=== PATIENT | female | born 1985 | race Two or more races ===

== ENCOUNTER 2016-11-11 10:02 | Emergency (ER) | payer MEDICAID, OTHER ==
[~2016-11-11] VITALS: Ht 157.5 cm; Wt 52.2 kg
[2016-11-11 11:07] LABS: KETONES,URINE Negative (NEGATIVE); LEUKOCYTE ESTERASE ,URINE Negative (NEGATIVE)
[2016-11-11 11:10] LABS: ADD UA MICROSCOPIC YES
[2016-11-11 11:23] LABS: ADD URINE CULTURE NO; WBC,URINE 0-2 /HPF (0-3)
[2016-11-11 11:27] VITALS: BP 132/65
== END 2016-11-11 11:30 | disposition home or self-care (01) ==
LOC: ER 10:03
DX: M54.5 Low back pain (principal)
CPT/HCPCS: 81001; 99283; A4606; Z7610; 81000-TC

== ENCOUNTER 2017-08-12 01:04 | Emergency (ER) | payer MEDICAID ==
--- NOTE | 2017-08-12 01:18 | NUR ---
during triage assessment, patient states that she has had a rash for 8 months, and tonight its became itchy and wants a cream for it, and doesnt want to see a doctor. i advised her to get hydrocortisone cream over the counter, and to follow up with her primary doctor. she then did not want to continue the triage assessment and left [facility] ED.
== END 2017-08-12 01:24 | disposition left against medical advice (07) ==
LOC: ER 01:06
DX: Z53.21 Procedure and treatment not carried out due to patient leaving prior to being seen by health care provider (principal)

== ENCOUNTER 2018-04-21 23:49 | Emergency (ER) | payer MEDICAID ==
[~2018-04-21] VITALS: Ht 154.9 cm; Wt 53.5 kg
--- NOTE | 2018-04-21 23:49 | NUR ---
PT C/O MID EPIGASTIC PAIN X 2 DAYS WORSE NOW, - NVD. HX GASTRITIS. VSS NAD A/OX4 ROMANSH SPEAKING. WILL CONTINUE TO MONITOR FOR ANY CHANGES DURING THE SHIFT.
--- NOTE | 2018-04-21 23:50 | NUR ---
ER MD ALFRED AT BEDSIDE
[2018-04-22 00:46] LABS: BASOPHILS % (AUTO) 0.7 % (0.0-2.0); EOSINOPHILS % (AUTO) 3.2 % (0.0-6.0); HEMATOCRIT 41 % (33-45); HEMOGLOBIN 14.1 g/dL (11.5-14.8); LYMPHOCYTES # (AUTO) 2.2 /CMM (0.8-4.8); LYMPHOCYTES % (AUTO) 34.4 % (20.0-44.0); MEAN CORPUSCULAR HEMOGLOBIN 29 PG (26.0-33.0); MEAN CORPUSCULAR HGB CONC 34 g/dl (31.0-36.0); MEAN CORPUSCULAR VOLUME 85 fL (82-100); MONOCYTES # (AUTO) 0.5 /CMM (0.1-1.30); MONOCYTES % (AUTO) 8.3 % (2.0-12.0); NEUTROPHILS # (AUTO) 3.6 /CMM (1.8-8.9); NEUTROPHILS % (AUTO) 53.4 % (43.0-81.0); PLATELET COUNT (AUTO) 257 /CMM (150-450); RDW COEFFICIENT OF VARIATION 11.9 (11.5-15.0); RED BLOOD CELL COUNT(AUTO) 4.82 MIL/uL (4.0-5.2); WHITE BLOOD COUNT (AUTO) 6.5 K/uL (4.3-11.0)
[2018-04-22 00:51] LABS: APPEARANCE,URINE CLEAR (CLEAR); BILIRUBIN,URINE NEGATIVE (NEGATIVE); BLOOD, URINE 2+ Ery/uL (NEGATIVE); KETONES,URINE NEGATIVE (NEGATIVE); LEUKOCYTE ESTERASE ,URINE NEGATIVE (NEGATIVE); NITRITE, URINE NEGATIVE (NEGATIVE); PROTEIN,URINE NEGATIVE (NEGATIVE); UGLUCOSE NEGATIVE (NEGATIVE); UROBILINOGEN,URINE 0.2 EU/dL (0.2)
[2018-04-22 00:52] LABS: COLOR,URINE DARK YELLOW (YELLOW)
[2018-04-22] MEDS ORDERED: IV NS 0.9% 1,000 ML BAG IV ONE (01:00)
[2018-04-22] MEDS ORDERED: PANTOPRAZOLE 40 MG TABLET.DR PO ONE ×2 (01:00→01:04)
[2018-04-22] MEDS ORDERED: MAG HYDROX/AL HYDROX/SIMETH 30 ML UDC PO ONE (01:00)
[2018-04-22] MEDS ORDERED: MAG HYDROX/AL HYDROX/SIMETH 30 ML UDC ONE (01:03)
[2018-04-22 01:06] LABS: ALBUMIN 3.8 g/dL (3.4-5.0); BILIRUBIN,DIRECT 0.2 mg/dL (0.0-0.2); CALCIUM, SERUM 8.5 mg/dL (8.5-10.1); CREATININE 0.8 mg/dL (0.6-1.3); POTASSIUM 3.5 mmol/L (3.5-5.1); TOTAL PROTEIN, SERUM 7.7 g/dL (6.4-8.2)
[2018-04-22 01:10] LABS: BACTERIA,URINE None seen /HPF (None Seen); SQUAMOUS EPITHELIAL CELL,UR Few /HPF (None Seen); WBC,URINE 0-2 /HPF (0-3)
[2018-04-22 01:43] VITALS: BP 126/85
== END 2018-04-22 01:43 | disposition home or self-care (01) ==
LOC: ER 23:49
DX: K21.9 Gastro-esophageal reflux disease without esophagitis (principal); Z60.2 Problems related to living alone
CPT/HCPCS: 36415; 80048; 80076; 81001; 83690; 85025; 87086; 99284; A4606; Z7610; 81000-TC

== ENCOUNTER 2018-11-10 23:32 | Emergency (ER) | payer MEDICAID ==
[~2018-11-10] VITALS: Ht 154.9 cm; Wt 54.4 kg
--- NOTE | 2018-11-10 23:40 | NUR ---
[facility] C/O ABD PAIN W/ N/V X 1 DAY. PT AMBULATED TO BED WITH A STEADY GAIT. PT LYING IN BED IN COMFORTABLE POSITION. PT PLACED ON MONITOR WITH VS WNL. AWAITING MD DILLARD.
[2018-11-11 00:15] LABS: APPEARANCE,URINE CLEAR (CLEAR); BILIRUBIN,URINE 1+ (NEGATIVE); BLOOD, URINE 2+ Ery/uL (NEGATIVE); COLOR,URINE YELLOW (YELLOW); KETONES,URINE NEGATIVE (NEGATIVE); LEUKOCYTE ESTERASE ,URINE NEGATIVE (NEGATIVE); NITRITE, URINE NEGATIVE (NEGATIVE); PH,URINE 8.5 (5.0-8.0); PROTEIN,URINE 1+ mg/dl (NEGATIVE); UGLUCOSE NEGATIVE (NEGATIVE)
[2018-11-11 00:22] LABS: BASOPHILS % (AUTO) 0.5 % (0.0-2.0); EOSINOPHILS % (AUTO) 0.2 % (0.0-6.0); HEMATOCRIT 40 % (33-45); HEMOGLOBIN 13.7 g/dL (11.5-14.8); LYMPHOCYTES # (AUTO) 0.8 /CMM (0.8-4.8); LYMPHOCYTES % (AUTO) 12.1 % (20.0-44.0); MEAN CORPUSCULAR HGB CONC 34 g/dl (31.0-36.0); MEAN CORPUSCULAR VOLUME 86 fL (82-100); MONOCYTES # (AUTO) 0.7 /CMM (0.1-1.30); MONOCYTES % (AUTO) 10.6 % (2.0-12.0); NEUTROPHILS # (AUTO) 5.4 /CMM (1.8-8.9); NEUTROPHILS % (AUTO) 76.6 % (43.0-81.0); PLATELET COUNT (AUTO) 254 /CMM (150-450)
[2018-11-11] MEDS ORDERED: KETOROLAC TROMETHAMINE INJ 30 MG/ML VIAL ONE (00:29)
[2018-11-11] MEDS ORDERED: KETOROLAC TROMETHAMINE INJ 30 MG/ML VIAL IM ONE (00:30)
[2018-11-11 00:39] LABS: CALCIUM, SERUM 8.8 mg/dL (8.5-10.1); CREATININE 0.6 mg/dL (0.6-1.3); POTASSIUM 3.6 mmol/L (3.5-5.1)
[2018-11-11 00:45] LABS: ALBUMIN 4.2 g/dL (3.4-5.0); BILIRUBIN,DIRECT 1.1 mg/dL (0.0-0.2); BILIRUBIN,TOTAL 2.1 mg/dL (0.2-1.0); TOTAL PROTEIN, SERUM 7.9 g/dL (6.4-8.2)
[2018-11-11 00:46] LABS: BACTERIA,URINE Few /HPF (None Seen); RBC,URINE 51-80 /HPF (0-2); SQUAMOUS EPITHELIAL CELL,UR Few /HPF (None Seen); WBC,URINE 0-2 /HPF (0-3)
--- NOTE | 2018-11-11 01:02 | NUR ---
US TECH AT BEDSIDE
[2018-11-11] MEDS ORDERED: ONDANSETRON 4 MG TAB.RAPDIS SL ONE (03:00)
[2018-11-11] MEDS ORDERED: HYDROCODONE/APAP 5/325MG 1 EACH TABLET PO ONE (03:00)
[2018-11-11] MEDS ORDERED: HYDROCODONE/APAP 5/325MG 1 EACH TABLET ONE (03:23)
[2018-11-11] MEDS ORDERED: ONDANSETRON 4 MG TAB.RAPDIS ONE (03:23)
--- NOTE | 2018-11-11 04:28 | NUR ---
[facility] accepted ; room [phone] ETA 0530 AM
--- NOTE | 2018-11-11 04:30 | NUR ---
GAVE REPORT TO [facility] RN FOR CONTINUITY OF CARE.
--- NOTE | 2018-11-11 04:46 | NUR ---
RIGHT AC 20G PLACED WITH GOOD BLOOD RETURN AND SALINE LOCKED.
--- NOTE | 2018-11-11 04:52 | NUR ---
transferred to [facility]
[2018-11-11 04:55] VITALS: BP 142/58
== END 2018-11-11 05:04 | disposition short-term general hospital (02) ==
LOC: ER 23:37
DX: R74.0 Nonspecific elevation of levels of transaminase and lactic acid dehydrogenase [LDH] (principal); K83.8 Other specified diseases of biliary tract; R10.11 Right upper quadrant pain; R11.2 Nausea with vomiting, unspecified; N13.30 Unspecified hydronephrosis; Z90.49 Acquired absence of other specified parts of digestive tract; Z98.890 Other specified postprocedural states
CPT/HCPCS: 36415; 76705-TC; 80048-TC; 80076-TC; 81000-TC; 83690-TC; 84702-TC; 85025-TC; J1885; Q0162

== ENCOUNTER 2019-07-02 22:38 | Emergency (ER) | payer MEDICAID ==
[~2019-07-02] VITALS: Ht 157.5 cm; Wt 60.8 kg
--- NOTE | 2019-07-02 23:12 | NUR ---
BIBS FOR C/O LLQ ABD PAIN . - N/V. LBM: TODAY, LMP TWO WEEKS AGO AND NO CHANCE OF BEING . PT A, OX3, AMBULATORY TO BED 2, VSS. WILL CONT TO MONITOR ,
[2019-07-02 23:18] LABS: APPEARANCE,URINE Clear (CLEAR); BILIRUBIN,URINE Negative (NEGATIVE); BLOOD, URINE Moderate Ery/uL (NEGATIVE); COLOR,URINE Yellow (YELLOW); KETONES,URINE Trace (NEGATIVE); LEUKOCYTE ESTERASE ,URINE Negative (NEGATIVE); NITRITE, URINE Negative (NEGATIVE); PROTEIN,URINE Negative (NEGATIVE); UGLUCOSE Negative (NEGATIVE); UROBILINOGEN,URINE 0.2 EU/dL (0.2)
[2019-07-02] MEDS ORDERED: ONDANSETRON HCL/PF 4 MG/2 ML VIAL ONE (23:22)
[2019-07-02 23:23] LABS: HEMATOCRIT 41 % (33-45); HEMOGLOBIN 14.2 g/dL (11.5-14.8); LYMPHOCYTES # (AUTO) 1.8 /CMM (0.8-4.8); LYMPHOCYTES % (AUTO) 38.3 % (20.0-44.0); MEAN CORPUSCULAR HGB CONC 35 g/dl (31.0-36.0); MEAN CORPUSCULAR VOLUME 86 fL (82-100); MONOCYTES # (AUTO) 0.4 /CMM (0.1-1.30); MONOCYTES % (AUTO) 8.1 % (2.0-12.0); NEUTROPHILS # (AUTO) 2.4 /CMM (1.8-8.9); NEUTROPHILS % (AUTO) 51.6 % (43.0-81.0); PLATELET COUNT (AUTO) 242 /CMM (150-450); WHITE BLOOD COUNT (AUTO) 4.7 K/uL (4.3-11.0)
[2019-07-02] MEDS ORDERED: MORPHINE SULFATE INJ 4 MG/ML DISP.SYRIN ONE (23:23)
[2019-07-02] MEDS ORDERED: ONDANSETRON HCL/PF 4 MG/2 ML VIAL IVP ONE (23:30)
[2019-07-02] MEDS ORDERED: MORPHINE SULFATE INJ 2 MG/ML DISP.SYRIN IV ONE (23:30)
[2019-07-02] MEDS ORDERED: IV NS 0.9% 1,000 ML BAG IV ONE (23:30)
[2019-07-02 23:41] LABS: CALCIUM, SERUM 8.7 mg/dL (8.5-10.1); CARBON DIOXIDE 28 mmol/L (21-32); CHLORIDE 103 mmol/L (98-107); CREATININE 0.8 mg/dL (0.6-1.3); GLUCOSE 89 mg/dL (74-106); POTASSIUM 3.3 mmol/L (3.5-5.1); SODIUM SERUM 141 mmol/L (136-145); UREA NITROGEN, BLOOD 6 mg/dL (7-18)
[2019-07-02] MEDS ORDERED: IOHEXOL-300 100 ML VIAL IV ONE (23:47)
[2019-07-02] MEDS ORDERED: IV NS 0.9% 250 ML IV ONE (23:47)
[2019-07-02] MEDS ORDERED: CT SWABBABLE VALVE TRANS SET 1 EA INFUS.SET MC ONE (23:47)
[2019-07-02 23:48] LABS: ALANINE AMINOTRANSFERASE 16 U/L (12-78); ALBUMIN 4.4 g/dL (3.4-5.0); ALKALINE PHOSPHATASE 72 U/L (46-116); ASPARTATE AMINOTRANSFERASE 17 U/L (15-37); BILIRUBIN,DIRECT 0.3 mg/dL (0.0-0.2); BILIRUBIN,TOTAL 1.6 mg/dL (0.2-1.0); LIPASE 106 U/L (73-393)
[2019-07-02 23:54] LABS: BACTERIA,URINE None seen /HPF (None Seen); SQUAMOUS EPITHELIAL CELL,UR Few /HPF (None Seen); WBC,URINE 0-2 /HPF (0-3)
--- NOTE | 2019-07-03 01:39 | NUR ---
IV removed. Catheter intact and site benign. Pressure and 4x4 applied to site. No bleeding noted.Patient discharged to home in stable condition. Rx and Written and verbal after care instructions given. Patient verbalizes understanding of instruction. Pt was provided with a copy of her lab and imaging results.
[2019-07-03 02:21] VITALS: BP 117/76
== END 2019-07-03 01:39 | disposition home or self-care (01) ==
LOC: ER 22:44
DX: N83.292 Other ovarian cyst, left side (principal); K42.9 Umbilical hernia without obstruction or gangrene; R19.7 Diarrhea, unspecified; Z98.890 Other specified postprocedural states
CPT/HCPCS: 36415; 74177; 76856; 80048; 80076; 81001; 83690; 84484; 84703; 85025; 85730; 93005; 96361; 96374; 96375; 99284; J2270; J2405; J7030; J7050; Q9967; 81000-TC

== ENCOUNTER 2019-08-19 20:44 | Emergency (ER) | payer MEDICAID ==
[~2019-08-19] VITALS: Ht 157.5 cm; Wt 61.7 kg
--- NOTE | 2019-08-19 21:48 | NUR ---
PRESENTRED TO THE ER FOR EVALUATION OF LOWER BACK PAIN X 3 DAYS. - DYSURIA OR HEMATURIA. WORSE ON SITTING POSITION. PT IS CURRENTLY ON HER 5TH DAY OF HER MENSTRUAL PERIOD.
[2019-08-19] MEDS ORDERED: CYCLOBENZAPRINE 10 MG TABLET PO ONE (22:00)
[2019-08-19] MEDS ORDERED: HYDROCODONE/APAP 5/325MG 1 EACH TABLET PO ONE (22:00)
[2019-08-19] MEDS ORDERED: CYCLOBENZAPRINE 10 MG TABLET ONE (22:02)
[2019-08-19] MEDS ORDERED: HYDROCODONE/APAP 5/325MG 1 EACH TABLET ONE (22:02)
[2019-08-19] MEDS ORDERED: KETOROLAC TROMETHAMINE INJ 60 MG/2 ML VIAL IM ONE ×2 (22:40→23:00)
--- NOTE | 2019-08-19 22:44 | NUR ---
pt signed a waiver form to receive toradol
--- NOTE | 2019-08-19 23:12 | NUR ---
Patient discharged to home in stable condition. Written and verbal after care instructions given. Patient verbalizes understanding of instruction. PT ambulatory with a steady gait.
[2019-08-19 23:13] VITALS: BP 136/86
== END 2019-08-19 23:14 | disposition home or self-care (01) ==
LOC: ER 20:47
DX: M54.5 Low back pain (principal); Z98.890 Other specified postprocedural states
CPT/HCPCS: 96372; 99283; J1885

== ENCOUNTER 2019-09-29 22:35 | Emergency (ER) | payer MEDICAID ==
[~2019-09-29] VITALS: Ht 154.9 cm; Wt 57.2 kg
--- NOTE | 2019-09-29 23:00 | NUR ---
PT AMBULATED TO ER #4 WITH A SLOW STEADY GAIT. PT IS FRENCH SPEAKING ONLY. PT STATED THAT SHE TOOK IBUPROFEN AROUND 1600 TODAY AND TOOK A FLEXERIL AROUND 1999 WITH NO RELIEF. PT STATED THAT HER PRESCRIPTIONS USUALLY WORK FOR THIS PAIN WHICH HAS BEEN GOING ON FOR 2 MONTHS.
--- NOTE | 2019-09-29 23:06 | NUR ---
DR OG IS AT THE BEDSIDE.
[2019-09-29] MEDS ORDERED: LORAZEPAM INJ 2 MG/ML VIAL ONE (23:16)
[2019-09-29] MEDS ORDERED: KETOROLAC TROMETHAMINE INJ 60 MG/2 ML VIAL IM ONE ×2 (23:17→23:30)
[2019-09-29] MEDS ORDERED: LORAZEPAM INJ 2 MG/ML VIAL IM ONE (23:30)
[2019-09-30 00:04] VITALS: BP 141/75
== END 2019-09-30 00:05 | disposition home or self-care (01) ==
LOC: ER 22:37
DX: M54.40 Lumbago with sciatica, unspecified side (principal); Z98.890 Other specified postprocedural states
CPT/HCPCS: 96372 ×2; 99283; J1885; J2060

== ENCOUNTER 2020-06-14 22:08 | Emergency (ER) | payer MEDICAID ==
[~2020-06-14] VITALS: Ht 157.5 cm; Wt 54.4 kg
[2020-06-14 23:03] VITALS: BP 122/76
--- NOTE | 2020-06-14 23:03 | NUR ---
BIBS FOR C/O SEVERE LOWER BACK PAIN X 5 DAYS. PT W/ HX OF CHRONIC LOWER BACK PAIN; pt to bed 10, rr even and unlabored, -sob. -cp. pt awaiting er provider nolberto
[2020-06-14] MEDS ORDERED: LORAZEPAM INJ 2 MG/ML VIAL IM ONE (23:30)
[2020-06-14] MEDS ORDERED: KETOROLAC TROMETHAMINE INJ 60 MG/2 ML VIAL IM ONE ×2 (23:30→23:35)
[2020-06-14] MEDS ORDERED: LORAZEPAM INJ 2 MG/ML VIAL ONE (23:35)
--- NOTE | 2020-06-15 00:37 | NUR ---
Patient discharged to home in stable condition. Written and verbal after care instructions given. Patient verbalizes understanding of instruction.
== END 2020-06-15 01:24 | disposition home or self-care (01) ==
LOC: ER 22:15
DX: M54.5 Low back pain (principal); G89.29 Other chronic pain; Z98.890 Other specified postprocedural states
CPT/HCPCS: 96372 ×2; 99284; J1885; J2060